=== PATIENT | female | born 1955 | race Caucasian/White ===

== ENCOUNTER → 2020-06-22 | Outpatient (CLI) | payer OTHER ==
[~2020-06-22] MED LIST: 0.9 % SODIUM CHLORIDE 10 ML VIAL. ONE; DEXAMETHASONE SOD PHOS 10 MG/ML VIAL. ONE; IOHEXOL 300 MG/ML 50 ML VIAL. ONE; LIDOCAINE 1% PF 30 ML VIAL. ONE
[2020-06-22 10:28] VITALS: BP 146/77
== END | disposition home or self-care (01) ==
LOC: SURG 09:50
PROVIDERS: ATTEND Anesthesiology
DX: M54.16 Radiculopathy, lumbar region (principal); M54.5 Low back pain; K75.89 Other specified inflammatory liver diseases; Z83.3 Family history of diabetes mellitus; Z82.3 Family history of stroke; Z79.899 Other long term (current) drug therapy
CPT/HCPCS: 62323; J1100; J2001; Q9967